=== PATIENT | female | born 1980 | race Caucasian/White ===

== ENCOUNTER 2022-02-19 09:29 | Outpatient (CLI) | payer BC, SELFPAY ==
[2022-02-19 11:09] LABS: Cholesterol* 215 mg/dL (90-199); Glucose* 82 mg/dL (60-115)
[2022-02-19 11:10] LABS: HDL Cholesterol* 72 mg/dL (>=50); LDL Cholesterol Calculated 121 mg/dL (<100); Triglycerides* 111 mg/dL (40-149)
== END 2022-02-19 09:30 | disposition home or self-care (01) ==
PROVIDERS: PCP Family Medicine; Visit Provider Registered Nurse
DX: Z13.6 Encounter for screening for cardiovascular disorders (principal); Z13.1 Encounter for screening for diabetes mellitus
CPT/HCPCS: 80061; 82947

== ENCOUNTER 2022-05-14 08:56 | Outpatient (CLI) | payer BC, SELFPAY ==
--- NOTE | 2022-05-14 09:15 | CRLHL7_ITS ---
For Patients: As a result of the Century Cures Act, medical imaging exams and procedure reports are released immediately into your electronic medical record. You may view this report before your referring provider. If you have questions, please contact your health care provider. BILATERAL SCREENING MAMMOGRAM WITH COMPUTER-AIDED DETECTION TECHNIQUE: CC and MLO views were obtained. These mammographic images have been obtained using full-field digital technique. These mammographic images were interpreted with the benefit of computer-aided detection. COMPARISON FILM: 02/28/21. FINDINGS: The breasts are heterogeneously dense, which may obscure small masses IMPRESSION: There is no radiographic evidence for malignancy. ASSESSMENT: BI-RADS Category 1: Negative RECOMMENDATION: Routine screening mammogram in 1 year. A lay language report of this examination will be provided to the patient. Randy Matos M.D. Diagnostic Radiologist [email or web address] Transcribed: 2:19 pm DW/Dictated by: Randy Matos MD @ 05/14/2022 12:10:00 PM (Electronically Signed)
== END 2022-05-14 08:57 | disposition home or self-care (01) ==
LOC: MAMMO 08:58
PROVIDERS: PCP Family Medicine; Visit Provider Registered Nurse
DX: Z12.31 Encounter for screening mammogram for malignant neoplasm of breast (principal); R92.2 Inconclusive mammogram
CPT/HCPCS: 77067

== ENCOUNTER 2024-02-23 10:57 | Outpatient (CLI) | payer BC, SELFPAY ==
[2024-02-24 22:01] LABS: HPV Source Cervical; HPV, High Risk by TMA Not Detected
[2024-02-24 22:05] LABS: HPV Source Cervical; HPV, High Risk by TMA Not Detected
== END 2024-02-23 10:58 | disposition home or self-care (01) ==
PROVIDERS: PCP Family Medicine; Visit Provider Registered Nurse
DX: Z01.419 Encounter for gynecological examination (general) (routine) without abnormal findings (principal); N89.8 Other specified noninflammatory disorders of vagina; Z12.4 Encounter for screening for malignant neoplasm of cervix
CPT/HCPCS: 87624; 87625; 88141; 88142

== ENCOUNTER 2024-04-25 10:08 | Outpatient (CLI) | payer BC, SELFPAY ==
--- NOTE | 2024-04-25 11:00 | P.ANES_ITS ---
Anesthesia Charges Start Date/Time Anesthesia Start Date: 04/25/24 Anesthesia Start Time: 10:40 Stop Date/Time Anesthesia Stop Date: 04/25/24 Anesthesia Stop Time: 11:00 Coding CPT Codes CPT Codes: CHASE LWR INTST SCR COLSC - [id number] ([id number]) P2 - PATIENT W/MILD SYST DISEASE, QX - CORE LAYER MACHINE OPERATOR SVC W/ MD MED DIRECTION, QK - CASE PACKER 2-4 CNCRNT ANES PROC
--- NOTE | 2024-04-25 11:00 | W.ANESCHARGE ---
Anesthesia Charges Start Date/Time Anesthesia Start Date: 04/25/24 Anesthesia Start Time: 10:40 Stop Date/Time Anesthesia Stop Date: 04/25/24 Anesthesia Stop Time: 11:00 Coding CPT Codes CPT Codes: CHASE LWR INTST SCR COLSC - [id number] ([id number]) P2 - PATIENT W/MILD SYST DISEASE, QX - CHIEF PROGRAM OFFICER SVC W/ MD MED DIRECTION, QK - STERILE PRODUCTS PROCESSOR 2-4 CNCRNT ANES PROC
--- NOTE | 2024-04-25 12:12 | P.ANES_ITS ---
Anesthesia Charges Start Date/Time Anesthesia Start Date: 04/25/24 Anesthesia Start Time: 10:40 Stop Date/Time Anesthesia Stop Date: 04/25/24 Anesthesia Stop Time: 11:00 Coding CPT Codes CPT Codes: CHASE LWR INTST SCR COLSC - [id number] ([id number]) QK - AUTOMOTIVE DESIGNER 2-4 CNCRNT CHASE PROC, QX - BOX CUTTER SVC W/ MD MED DIRECTION, P2 - PATIENT W/MILD SYST DISEASE
--- NOTE | 2024-04-25 12:12 | W.ANESCHARGE ---
Anesthesia Charges Start Date/Time Anesthesia Start Date: 04/25/24 Anesthesia Start Time: 10:40 Stop Date/Time Anesthesia Stop Date: 04/25/24 Anesthesia Stop Time: 11:00 Coding CPT Codes CPT Codes: CHASE LWR INTST SCR COLSC - [id number] ([id number]) QK - MARKETING COMPLIANCE MANAGER 2-4 CNCRNT CHASE PROC, QX - IT INTEGRATION ARCHITECT SVC W/ MD MED DIRECTION, P2 - PATIENT W/MILD SYST DISEASE
== END 2024-04-25 10:09 | disposition home or self-care (01) ==
LOC: OP CLINIC 10:10
PROVIDERS: PCP Nurse Practitioner Family; Visit Provider Internal Medicine
DX: Z12.11 Encounter for screening for malignant neoplasm of colon (principal); K57.30 Diverticulosis of large intestine without perforation or abscess without bleeding; Z80.0 Family history of malignant neoplasm of digestive organs
CPT/HCPCS: 00812; 45378; J2704

== ENCOUNTER 2024-05-23 13:06 | Outpatient (CLI) | payer BC, SELFPAY | END 2024-05-23 13:07 | disposition home or self-care (01) | LOC: MAMMO 13:06 | PROVIDERS: PCP Nurse Practitioner Family; Visit Provider Registered Nurse | DX: Z12.31 Encounter for screening mammogram for malignant neoplasm of breast (principal) | CPT/HCPCS: 77063; 77067 ==